=== PATIENT | female | born 1985 | race Two or more races ===

== ENCOUNTER 2020-02-03 18:58 | Emergency (ER) | payer SELFPAY ==
[~2020-02-03] VITALS: Ht 157.5 cm; Wt 69.8 kg
[2020-02-03 19:45] LABS: BASOPHILS % (AUTO) 0 % (0-1); EOSINOPHILS % (AUTO) 0 % (1-7); LYMPHOCYTES % (AUTO) 6 % (22-44); MEAN CORPUSCULAR HEMOGLOBIN 30.8 pg (27.0-34.8); MEAN CORPUSCULAR HGB CONC 34.2 g/dL (32.4-35.8); MEAN PLATELET VOLUME 8.2 fL (7.4-10.4); MONOCYTES % (AUTO) 8 % (2-9); NEUTROPHILS % (AUTO) 85 % (42-75); PLATELET COUNT 203 x10^3/uL (130-400); RED BLOOD COUNT 4.56 x10^6/uL (3.82-5.3); RED CELL DISTRIBUTION WIDTH 13.9 % (9.6-15.2)
[2020-02-03 19:46] LABS: MD NO
[2020-02-03 19:51] LABS: ALBUMIN 3.6 g/dL (3.4-5.0); ANION GAP 6 mmol/L (5-15); CALCIUM 9.6 mg/dL (8.5-10.1); CHLORIDE 101 mmol/L (98-107)
[2020-02-03 20:00] LABS: ALANINE AMINOTRANSFERASE 111 U/L (12-78); ALKALINE PHOSPHATASE 107 U/L (45-117); CREATININE 0.84 mg/dL (0.55-1.02); TOTAL PROTEIN 8.6 g/dL (6.4-8.2)
[2020-02-03] MEDS ORDERED: KETOROLAC 30 MG/1 ML IVPush ONE (21:30)
[2020-02-03] MEDS ORDERED: MORPHINE SULFATE 4 MG/ML, 1ML IVPush PRN (21:30)
[2020-02-03] MEDS ORDERED: SODIUM CHLORIDE 0.9% 1,000ML IVBOLUS ONE ×2 (21:30→23:00)
[2020-02-03] MEDS ORDERED: ONDANSETRON 2MG/ML, 2ML IVPush ONE (21:30)
[2020-02-03] MEDS ORDERED: SODIUM CHLORIDE FLUSH 10ML SYR IVF ONE ×2 (21:30→23:00)
[2020-02-03] MEDS ORDERED: MORPHINE SULFATE 4 MG/ML, 1ML ONE (21:47)
[2020-02-03] MEDS ORDERED: ONDANSETRON 2MG/ML, 2ML ONE (21:47)
[2020-02-03] MEDS ORDERED: KETOROLAC 30 MG/1 ML ONE (21:47)
--- NOTE | 2020-02-03 21:52 | NUR ---
PROVIDER AT BEDSIDE FOR ASSESSMENT AND RESULTS
--- NOTE | 2020-02-03 21:53 | NUR ---
PT COMES IN C/O WEAKNESS AND "I COULDNT GET UP" X1 DAY. ABD US RESULTED. PROVIDER DISCUSSED RESULTS WITH PT. AND SIG. OTHER. ACCOMPANIED BY SPOUSE. MONITORS CONNECTED. WARM BLANKETS PROVIDED
[2020-02-03 22:01] LABS: MICROSCOPIC INDICATED
--- NOTE | 2020-02-03 22:06 | NUR ---
REPORT RECIEVED FROM IBETH YOST
--- NOTE | 2020-02-03 22:07 | NUR ---
PT STATES PAIN IS STARTING TO FEEL BETTER, PT ON MONITORS AWAITING XRAY RESULTS
[2020-02-03] MEDS ORDERED: CEFTRIAXONE PMX 1GM/50ML 50 ML IV ONE (22:30)
[2020-02-03] MEDS ORDERED: ACETAMINOPHEN 325 MG TABLET PO ONE (23:00)
[2020-02-03] MEDS ORDERED: CEFTRIAXONE PMX 1GM/50ML 50 ML ONE (23:25)
[2020-02-03] MEDS ORDERED: ACETAMINOPHEN 325 MG TABLET ONE (23:25)
--- NOTE | 2020-02-03 23:55 | NUR ---
ABX HUNG AFTER BLOOD CULTURE DRAW
--- NOTE | 2020-02-04 00:25 | NUR ---
PT GIVEN WATER PER REQUEST, OK PER ERP
[2020-02-04 01:00] VITALS: BP 104/58
[2020-02-05] MEDS ORDERED: CEFD300C37 PO (07:18)
== END 2020-02-04 01:27 | disposition home or self-care (01) ==
LOC: EDSEX 18:58 → ED 23:01
DX: N10 Acute pyelonephritis (principal); R94.5 Abnormal results of liver function studies; R93.5 Abnormal findings on diagnostic imaging of other abdominal regions, including retroperitoneum; R00.0 Tachycardia, unspecified
CPT/HCPCS: 36415; 71046; 76700; 80053; 81001; 83605; 83690; 84145; 84703; 85025; 87040; 87077; 87086; 87186; 96361; 96365; 96375; 99285; J0696; J1885; J2270; J2405; J7030

== ENCOUNTER 2020-02-04 17:40 | Inpatient (IN) | payer OTHER ==
[~2020-02-04] VITALS: Ht 157.5 cm; Wt 71.0 kg
[2020-02-04] MEDS ORDERED: SODIUM CHLORIDE FLUSH 10ML SYR IVF ONE (18:30)
[2020-02-04] MEDS ORDERED: SODIUM CHLORIDE 0.9% 1,000ML IVBOLUS ONE (18:30)
[2020-02-04 19:17] LABS: BASOPHILS % (AUTO) 0 % (0-1); EOSINOPHILS % (AUTO) 0 % (1-7); LYMPHOCYTES % (AUTO) 10 % (22-44); MEAN CORPUSCULAR HEMOGLOBIN 30.7 pg (27.0-34.8); MEAN CORPUSCULAR HGB CONC 34.5 g/dL (32.4-35.8); MONOCYTES % (AUTO) 13 % (2-9); NEUTROPHILS % (AUTO) 78 % (42-75); PLATELET COUNT 141 x10^3/uL (130-400); RED BLOOD COUNT 3.81 x10^6/uL (3.82-5.3); RED CELL DISTRIBUTION WIDTH 13.3 % (9.6-15.2)
[2020-02-04] MEDS ORDERED: PIPERACILLIN/TAZO/PMX 3.375GM 50 ML ONE (19:17)
[2020-02-04 19:27] LABS: ANION GAP 5 mmol/L (5-15); CALCIUM 8.6 mg/dL (8.5-10.1); CHLORIDE 105 mmol/L (98-107); CREATININE 0.66 mg/dL (0.55-1.02)
[2020-02-04 19:28] LABS: MD NO
[2020-02-04] MEDS ORDERED: PIPERACILLIN/TAZO/PMX 3.375GM 50 ML IV ONE (19:30)
[2020-02-04] MEDS ORDERED: SODIUM CHLORIDE FLUSH 10ML SYR IVF PRN (20:00)
--- NOTE | 2020-02-04 21:54 | NUR ---
TRANSFERRED TO HOSPITAL BED.
[2020-02-04] MEDS ORDERED: POTASSIUM CHLORIDE 20 MEQ TAB.ER.PRT ONE (22:51)
[2020-02-04] MEDS: LACTATED RINGERS 1,000 ML IV SCH (22:55)
[2020-02-04] MEDS ORDERED: POTASSIUM CHLORIDE 20 MEQ TAB.ER.PRT PO ONE (23:00)
[2020-02-04] MEDS ORDERED: MELATONIN 5 MG TABLET PO PRN (23:00)
[2020-02-04] MEDS ORDERED: LIDODERM 5% PATCH TD PRN (23:00)
[2020-02-04] MEDS ORDERED: ONDANSETRON 2MG/ML, 2ML IVPush PRN (23:00)
[2020-02-04] MEDS ORDERED: IBUPROFEN 600 MG TABLET PO PRN (23:00)
[2020-02-04] MEDS ORDERED: DOCUSATE 100 MG CAPSULE PO PRN (23:00)
--- NOTE | 2020-02-04 23:07 | NUR ---
BEDSIDE REPORT RECEIVED FROM GLEA CRISTINA
--- NOTE | 2020-02-04 23:32 | NUR ---
PT UP TO BATHROOM WITH THIS RN, STEADY GAIT. URINE SAMPLE COLLECTED AND SENT TO LAB. PT DENIES ANY NEEDS AT THIS TIME. CALL LIGHT AND PERSONAL BELONGINGS WITHIN REACH.
[2020-02-04 23:52] LABS: MICROSCOPIC AUTO
[2020-02-05] MEDS ORDERED: PIPERACILLIN/TAZO/PMX 3.375GM 50 ML ONE ×2 (01:08→07:47)
--- NOTE | 2020-02-05 01:15 | NUR ---
PT UP TO BATHROOM WITH THIS RN, STEADY GAIT. WILL MEDICATE PER EMAR. NO ADDITIONAL NEEDS AT THIS TIME. CALL LIGHT AND BELONGINGS WITHIN REACH.
[2020-02-05] MEDS: PIPERACILLIN/TAZO/PMX 3.375GM 50 ML IV SCH ×4 (01:16→21:44)
--- NOTE | 2020-02-05 02:06 | NUR ---
PT SUPINE ON HOSPITAL BED, VSS, NAD. RESTING COMFORTABLY WITH EYES CLOSED. PT DENIES ANY NEEDS AT THIS TIME. CALL LIGHT AND PERSONAL BELONGINGS WITHIN REACH.
[2020-02-05] MEDS ORDERED: IBUPROFEN 600 MG TABLET ONE (03:09)
--- NOTE | 2020-02-05 03:12 | NUR ---
PT O2 SAT NOTED TO BE 87-88% ON ROOM AIR WHILE SLEEPING. PT PLACED ON 2L SUPPLEMENTAL O2 VIA NASAL CANNULA, TOLERATED WELL. PT REPORTS MILD PAIN, MEDICATED PER EMAR. NO ADDITIONAL NEEDS AT THIS TIME. CALL LIGHT AND PERSONAL BELONGINGS WITHIN REACH.
--- NOTE | 2020-02-05 04:08 | NUR ---
PT SUPINE ON HOSPITAL BED, NAD, VSS. PT DENIES ANY COMPLAINTS AT THIS TIME. CALL LIGHT AND PERSONAL BELONGINGS WITHIN REACH.
[2020-02-05 05:11] LABS: BASOPHILS % (AUTO) 0 % (0-1); EOSINOPHILS % (AUTO) 0 % (1-7); LYMPHOCYTES % (AUTO) 16 % (22-44); MEAN CORPUSCULAR HEMOGLOBIN 31.3 pg (27.0-34.8); MEAN CORPUSCULAR HGB CONC 34.4 g/dL (32.4-35.8); MEAN PLATELET VOLUME 8.4 fL (7.4-10.4); MONOCYTES % (AUTO) 13 % (2-9); NEUTROPHILS % (AUTO) 71 % (42-75); PLATELET COUNT 122 x10^3/uL (130-400); RED BLOOD COUNT 3.44 x10^6/uL (3.82-5.3); RED CELL DISTRIBUTION WIDTH 13.4 % (9.6-15.2)
--- NOTE | 2020-02-05 05:15 | NUR ---
PT UP TO BATHROOM WITH THIS RN, STEADY GAIT. RETURNED TO HOSPITAL BED, NAD, VSS. PT DENIES ANY NEEDS AT THIS TIME. CALL LIGHT AND PERSONAL BELONGINGS WITHIN REACH. CONTINUOUS PULSE OX AND AUTO BODY MAN IN PLACE.
[2020-02-05 05:16] LABS: ANION GAP 4 mmol/L (5-15); CALCIUM 8.4 mg/dL (8.5-10.1); CHLORIDE 107 mmol/L (98-107); CREATININE 0.65 mg/dL (0.55-1.02)
[2020-02-05 05:20] LABS: MD NO
--- NOTE | 2020-02-05 06:48 | NUR ---
PT SUPINE ON HOSPITAL BED, NAD, VSS. PT DENIES ANY COMPLAINTS AT THIS TIME. CALL LIGHT AND PERSONAL BELONGINGS WITHIN REACH.
--- NOTE | 2020-02-05 06:51 | NUR ---
BEDSIDE REPORT TO FRANK CRISTINA
[2020-02-05] MEDS: LACTATED RINGERS 1,000 ML IV SCH ×3 (07:00→23:27)
[2020-02-05] MEDS ORDERED: CEFD300C37 PO (07:18)
--- NOTE | 2020-02-05 07:40 | NUR ---
REPORT RECEIVED FROM IBETH COOK, CARE ASSUMED BY THIS RN. PT IS A&OX4, RESPS EVEN AND UNLABORED. PT DENIES PAIN. PT ON HOSPITAL BED, RESTING COMFORTABLY. NSR ON PROCESS OWNER, RATE 80'S WITH NO ECTOPY. BED LOCKED AND IN LOWEST POSITION. CALL LIGHT IN REACH. AWAITING MED-TELE BED ASSIGNMENT AT THIS TIME.
--- NOTE | 2020-02-05 08:17 | NUR ---
PT UP TO VOID, DENIES DIFFICULTY WITH URINATION/BM THIS AM. GAIT STEADY. REATTACHED TO ALL MONITORS. ZOSYN INFUSING VIA IV PUMP. CURRENT LR BAG HAS APPROX 800ML STILL, NOT REQUIRING NEW BAG AT THIS TIME, LR INFUSING AT 100ML/HR, PAUSED FOR ZOSYN INFUSION COMPATIBILITY NOT ESTABLISHED. CALL LIGHT IN REACH. PT DENIES ANY NEEDS AT THIS TIME.
--- NOTE | 2020-02-05 08:43 | NUR ---
report given to IBETH Hernandez, pt awaiting transport to room 525.
[2020-02-05 09:02] VITALS: BP 116/83
[2020-02-05 12:33] VITALS: BP 126/88
[2020-02-05 19:14] VITALS: BP 134/86
[2020-02-06 01:15] VITALS: BP 129/89
[2020-02-06] MEDS: PIPERACILLIN/TAZO/PMX 3.375GM 50 ML IV SCH ×2 (04:03→10:44)
[2020-02-06 05:32] LABS: CHLORIDE 103 mmol/L (98-107)
[2020-02-06 05:38] LABS: ALANINE AMINOTRANSFERASE 79 U/L (12-78); ALBUMIN 2.7 g/dL (3.4-5.0); ALKALINE PHOSPHATASE 85 U/L (45-117); ANION GAP 6 mmol/L (5-15); BASOPHILS % (AUTO) 0 % (0-1); BILIRUBIN,TOTAL 0.9 mg/dL (0.2-1.0); CALCIUM 8.9 mg/dL (8.5-10.1); CREATININE 0.57 mg/dL (0.55-1.02); EOSINOPHILS % (AUTO) 0 % (1-7); LYMPHOCYTES % (AUTO) 21 % (22-44); MEAN CORPUSCULAR HEMOGLOBIN 30.6 pg (27.0-34.8); MEAN CORPUSCULAR HGB CONC 34.3 g/dL (32.4-35.8); MEAN PLATELET VOLUME 8.5 fL (7.4-10.4); MONOCYTES % (AUTO) 15 % (2-9); NEUTROPHILS % (AUTO) 63 % (42-75); PLATELET COUNT 161 x10^3/uL (130-400); RED BLOOD COUNT 3.66 x10^6/uL (3.82-5.3); RED CELL DISTRIBUTION WIDTH 13.2 % (9.6-15.2)
[2020-02-06 05:41] LABS: MD NO
[2020-02-06] MEDS ORDERED: POTASSIUM CHLORIDE 20 MEQ TAB.ER.PRT PO ONE (07:30)
[2020-02-06] MEDS: LACTATED RINGERS 1,000 ML IV SCH (07:33)
[2020-02-06 07:55] VITALS: BP 144/97
[2020-02-06 12:21] VITALS: BP 136/97
== END 2020-02-06 15:49 | disposition home or self-care (01) | DRG 690 ==
LOC: ED 19:25 → EDIP 19:33 → 5SO 02-05 09:01
PROVIDERS: ADMIT Family Medicine; ATTEND Family Medicine
PROC: 0T9B70Z Drainage of Bladder with Drainage Device, Via Natural or Artificial Opening (ICD-10-PCS; principal; 2020-02-04)
DX: N10 Acute pyelonephritis (principal); R78.81 Bacteremia; B96.20 Unspecified Escherichia coli [E. coli] as the cause of diseases classified elsewhere; E87.6 Hypokalemia; K76.0 Fatty (change of) liver, not elsewhere classified; R53.81 Other malaise; R00.0 Tachycardia, unspecified; R73.9 Hyperglycemia, unspecified; Z83.3 Family history of diabetes mellitus
CPT/HCPCS: 36415; 80048; 80053; 80074; 81001; 82040; 83036; 84145; 85025; 87040; 87086; 99285; G0378; J2543; J7030; J7120